=== PATIENT | female | born 1970 | race Caucasian/White ===

== ENCOUNTER 2017-05-11 19:44 | Inpatient (IN) | payer MEDICARE, SELFPAY ==
[2017-05-11 19:45] VITALS: BP 97/55; PULSE 60; RESP 26; TEMP 36.6; O2SAT 94; BMI 41.9
--- NOTE | 2017-05-11 20:11 | PC.NURSE ---
16 [facility] inserted exp. date 02/15/2019 lot #[id number]
--- NOTE | 2017-05-11 20:14 | XR_ITS ---
XR chest AP COMPARISON: None HISTORY: Chest congestion TECHNIQUE: Portable supine chest FINDINGS: This is a poor inspiration. There is there is a questionable opacity in the right suprahilar region most likely due to confluence overlying rib and vascular shadows but a minimal infiltrate in the right upper lobe cannot be entirely excluded. The right lower lung field and left lung field are clear. Cardiac size is likely normal considering the poor inspiration and is no pleural fluid. IMPRESSION: Questionable right suprahilar right upper lobe bronchial pneumonia versus confluence of overlying shadows and suggest clinical correlation and possibly repeat study with better inspiration depending on the patient's symptoms.
--- NOTE | 2017-05-11 20:16 | PC.NURSE ---
poison control contacted prior to arrival, recommendations recieved
[2017-05-11 20:17] LABS: Microscopic,Cath URINE MICROSCOPIC (MICROSCOPIC)
[2017-05-11 20:19] LABS: Eosinophils # 0.1 K/mm3 (0.0-0.4); Eosinophils % 0.5 % (0.1-12.0); Lymphocytes # 2.1 K/mm3 (0.7-4.5); Mean Corpuscular Volume 65.2 fl (81-99); Mean Platelet Volume 7.1 fl (7.4-10.4); Red Cell Distribution Width 17.2 % (11.5-17.5)
--- NOTE | 2017-05-11 20:21 | HMH.EDOD ---
ED Disposition Clinical Impression: Drug overdose Qualifiers: Encounter type: initial encounter Injury intent: intentional self-harm Qualified Code(s): T50.902A - Poisoning by unspecified drugs, medicaments and biological substances, intentional self-harm, initial encounter Leukocytosis Qualifiers: Leukocytosis type: bandemia Qualified Code(s): D72.825 - Bandemia Disposition: Admitted as Observation Condition on Discharge: Good - Critical Care Critical Care Time: Yes Attestation: On 05/11/17, the high probability of a clinically significant, sudden or life threatening deterioration of the following system(s) required my full and direct attention, intervention and personal management. The time I documented below is in addition to time spent performing reported procedures but includes the following listed in this critical care notation. Total Critical Care Time: 90 Vital system(s) involved:: Respiratory Failure My critical care processes included: Assessment & monitoring of V/S, Initial and Re-exams, Data Review/Interpretation, Coordinating Care Medical Decision Making - Medical Records Medical records reviewed: Yes: I reviewed the patient's medical records. Vital Signs: 05/11/17 19:45 Temperature 97.9 F Temperature Source Oral Pulse Rate [Right Radial] 60 Respiratory Rate 26 H Blood Pressure [Right Arm] 97/55 Blood Pressure Mean [Right Arm] 69 Blood Pressure Source [Right Arm] Automatic Cuff Blood Pressure Position [Right Arm] Supine 02 Sat by Pulse Oximetry 94 L Oxygen Delivery Method Room Air - Lab Data Lab results reviewed: Yes: I reviewed the patient's lab results. Lab Results 05/11/17 19:58: WBC 24.2 H*, RBC 5.32, Hgb 10.0 L, Hct 34.7 L, MCV 65.2 L, MCH 18.7 L, MCHC 28.7 L, RDW 17.2, Plt Count 474 H, MPV 7.1 L, Neut % (Auto) 86.8 H, Lymph % (Auto) 8.5 L, [place] % (Auto) 4.1, Eos % (Auto) 0.5, Baso % (Auto) 0.1, Neut # (Auto) 21.0 H, Lymph # (Auto) 2.1, [place] # (Auto) 1.0, Eos # (Auto) 0.1, Baso # (Auto) 0.0, Total Counted 100, Neutrophils % (Manual) 80 H, Band Neutrophils % 11.0 H, Lymphocytes % (Manual) 7 L, Monocytes % (Manual) 2, Platelet Estimate Slight increase, Polychromasia 1+, Hypochromasia 3+, Anisocytosis 1+, Microcytosis 3+ 05/11/17 19:58: Urine Color Yellow, Urine Appearance Sl cloudy, Urine pH 6.0, Ur Specific [place] 1.025, Urine Protein Negative, Urine Glucose (UA) Negative, Urine Ketones Negative, Urine Blood Negative, Urine Nitrate Negative, Urine Bilirubin Negative, Urine Urobilinogen 0.2, Ur Leukocyte Esterase Negative, Urine RBC None, Urine WBC Occasional, Ur Squamous Epith Cells 20-50, Urine Bacteria 1+ 05/11/17 19:58: Sodium 140, Potassium 4.3, Chloride 106, Carbon Dioxide 26, Anion Gap 12.3, BUN 12, Creatinine 0.84, Estimated Creat Clear 78, Estimated GFR 73, Est GFR ( Amer) 88, Glucose 133 H, Calcium 8.7, Total Bilirubin 0.4, AST 19, ALT 24, Alkaline Phosphatase 107, Total Protein 7.6, Albumin 3.2 L, Globulin 4.4 H, Albumin/Globulin Ratio 0.7 L, Salicylates 0.9 L, Acetaminophen 0 L, Plasma/Serum Alcohol 0 05/11/17 19:58: Urine Opiates Screen Negative, Ur Barbituates Screen Negative, Ur Phencyclidine Scrn Negative, Ur Amphetamines Screen Negative, U Methamphetamines Scrn Negative, U Benzodiazepines Scrn Positive H, Urine Cocaine Screen Negative, U Marijuana (THC) Screen Negative 05/11/17 19:58: Total Creatine Kinase 304 H, CK-MB (CK-2) 4.4 H, CK-MB (CK-2) Rel Index 1.4, Troponin I < 0.02 05/11/17 20:15: Specimen Source R. radial, O2 % Room air, ABG pH 7.39, ABG pCO2 35.2, ABG pO2 70.6 L, ABG HCO3 20.8 L, ABG Total CO2 21.9 L, ABG O2 Saturation 93, ABG Base Excess -4.1 L, Alexy Test Acceptable Result diagrams: 05/11/17 19:58 05/11/17 19:58 Orders (Tests/Meds): ED MEDICATIONS Discontinued Medications Generic Name Dose Route Start Last Admin Trade Name Freq PRN Reason Stop Dose Admin Sodium Chloride 1,000 mls @ 999 mls/hr 05/11/17 20:00 05/11/17 20:13 Sod Chlor 0.9% 1000ml
[2017-05-11 20:22] LABS: Appearance,Urine/Cath SL CLOUDY (Clear); Bilirubin,Cath Negative (Negative); Blood, Urine/Cath Negative (Negative); Color,Urine/Cath YELLOW (Yellow); Glucose,Urine/Cath (UA) Negative (Negative); Ketones,Urine/Cath Negative (Negative); Leukocyte Esterase,Cath Negative (Negative); Nitrate,Cath Negative (Negative); Protein,Urine/Cath Negative (Negative); Specific Gravity, Urine/Cath 1.025 (1.005-1.030); Urobilinogen,Cath 0.2 EU/dl (0.2)
[2017-05-11 20:23] LABS: Basophils % 0.1 % (0.1-2.0); Hematocrit 34.7 % (37.0-47.0); Lymphocytes % 8.5 K/mm3 (10-50); Mean Corpuscular HGB Conc 28.7 g/dL (31.8-35.4); Mean Corpuscular Hemoglobin 18.7 pg (27.0-31.2); Monocytes % 4.1 % (1.7-9.3); Neutrophils % 86.8 % (37.0-80.0); Platelet Count 474 K/mm3 (142-424); Red Blood Count 5.32 M/mm3 (4.20-5.40); White Blood Count 24.2 K/mm3 (4.8-10.8)
[2017-05-11 20:24] LABS: ABG Base Excess -4.1 mmol/L (-2.4-2.3); ABG HCO3 20.8 mmhg (22.0-26.0); ABG Oxygen Saturation 93 % (90-100); ABG PCO2 35.2 mmhg (35.0-45.0); ABG PH 7.39 mmol/L (7.35-7.45); ABG PO2 70.6 mmhg (80-100); ABG TCO2 21.9 mmhg (23-27)
[2017-05-11 20:25] LABS: MANUAL DIFFERENTIAL MANUAL DIFFERENTIAL (MANUAL DIFF)
[2017-05-11 20:26] LABS: Allen's Test ACCEPTABLE; Oxygen ROOM AIR %; Source R. RADIAL
[2017-05-11 20:29] LABS: Anisocytosis 1+; Hypochromasia 3+; Lymphocytes % 7 % (10-50); Microcytosis 3+; Monocytes % 2 % (2-9); Neutrophils % 80 % (42-76); Platelet Estimate Slight Increase; Polychromasia 1+; Total Cells Counted 100
[2017-05-11 20:32] LABS: Amphetamine/Metha Screen,Urine Negative ng/mL (<1000); Barbiturates Screen,Urine Negative ng/mL (<200); Benzodiazepines Screen,Urine Positive ng/mL (200); Cannabinoid Screen,Urine Negative ng/mL (<50); Cocaine Screen,Urine Negative ng/g (<300); Methadone Screen,Urine Negative ng/mL (<300); Opiate Screen,Urine Negative ng/mL (<300); Phencyclidine Screen,Urine Negative ng/mL (<25)
[2017-05-11 20:39] LABS: Alanine Aminotransferase 24 U/L (12-78); Albumin Level 3.2 gm/dL (3.4-5.0); Albumin/Globulin Ratio 0.7 (1.1-1.8); Alkaline Phosphatase 107 U/L (46-116); Anion Gap 12.3 mEq/L (5-15); Bilirubin,Total 0.4 mg/dL (0.2-1.0); Blood Urea Nitrogen 12 mg/dL (7-18); Calcium 8.7 mg/dL (8.5-10.1); Carbon Dioxide 26 mmol/L (21.0-32.0); Chloride 106 mmol/L (98-107); Creatinine Clearance Estimated 78 mL/min (0-300); Creatinine,Serum 0.84 mg/dL (0.55-1.02); Estimated Glomerular Filt Rate 73 ml/min (>60); Ethyl Alcohol 0 mg/dL (0-99); GFR (African American) 88 ML/MIN (>60); Globulin 4.4 gm/dl (1.3-3.2); Glucose 133 mg/dL (74-106); Salicylate 0.9 mg/dL (2.8-20.0); Sodium 140 mmol/L (136-145); Total Protein,Serum 7.6 gm/dL (6.4-8.2)
[2017-05-11 20:40] LABS: Acetaminophen 0 ug/mL (10-30); Aspartate Amino Transferase 19 U/L (15-37); Potassium 4.3 mmoL/L (3.5-5.1)
[2017-05-11 20:43] LABS: Bacteria,Urine/Cath 1+ /lpf; Squamous Epithelial Ur./Cath 20-50 #/hpf (0-5); WBC,Urine/Cath Occasional #/hpf (0-3)
[2017-05-11 21:05] LABS: CKMB Relative Index 1.4 U/L (0-4.0); Creatine Kinase 304 U/L (26-192); Creatine Kinase MB 4.4 mg/ml (0.0-3.6); Troponin I < 0.02 ng/ml (0.00-0.06)
--- NOTE | 2017-05-11 22:24 | PC.NURSE ---
Alek Castaneda [phone]
--- NOTE | 2017-05-11 22:25 | PC.NURSE ---
Called report to Michelle
[2017-05-11 22:41] VITALS: BP 99/60; PULSE 57; RESP 12; TEMP 36.6; O2SAT 97
[2017-05-11 23:00] VITALS: PULSE 70
[2017-05-11 23:05] VITALS: O2SAT 96
[2017-05-11 23:06] VITALS: BMI 38.5
[2017-05-11 23:10] VITALS: BP 166/82; PULSE 72; RESP 18; TEMP 36.7; O2SAT 99; BMI 27.7
[2017-05-12] VITALS (16 sets, daily range): BP systolic 134–190; BP diastolic 68–96; PULSE 63–119; RESP 12–22; TEMP 36.4–38.2; O2SAT 94–100
--- NOTE | 2017-05-12 00:04 | PC.NURSE ---
PT SLEEPING AT THIS TIME. WOKE UP BRIEFLY AND ASKED WHERE SHE WAS. PT WAS TOLD THAT SHE WAS AT THE HOSPITAL. PT WAS ASKED IF SHE REMEMBERED ANYTHING? DID SHE REMEMBER TAKING ANY PILLS? PT SAID YES THEN FELL BACK ASLEEP. PUPILS ARE REACTIVE. PT RESPONDS TO PAINFUL STIMULI. UPON ASSESSMENT. LUNGS WERE NOTED TO HAVE RHONCHI T/O. PT REMAINS ON RA @ 97%. OTHER VSS. F/C DRAINING TO BEDSIDE WITH CLOUDY, YELLOW URINE. PT REMAINS ONE ON ONE SUICIDE WATCH AT THIS TIME. STAFF WITHIN HANDS REACH OF PT. SAFETY MEASURES IN PLACE. NO OTHER CONCERNS AT THIS TIME. WILL CONTINUE TO MONITOR.
--- NOTE | 2017-05-12 01:40 | PC.NURSE ---
PT IS AWAKE AT THIS TIME AND COMMUNICATING. SHE STATES THAT SHE WISHES THAT NOONE HAD FOUND HER. SHE ALSO STATED THAT SHE TOOKD 18 XANAX, A BOTTLE OF FLEXERIL AND AMBIEN. SHE ALSO STATED THAT SHE DID IT DELIBERATELY. SHE STATES THAT SHE STILL WISHES THAT SHE HAD . SHE ALSO STATED THAT SHE IS CONCERNED ABOUT HER MENTAL STATUS. SHE STATED THAT SHE SOMETIMES HEARS VOICES AND THAT SHE FEELS LIKE HURTING PEOPLE. SAFETY MEASURES ARE IN PLACE. PT IS CURRENTLY ONE ON ONE SUICIDE WATCH. WILL CONTINUE TO MONITOR.
--- NOTE | 2017-05-12 04:56 | PC.NURSE ---
PT SLEEPING @ THIS TIME. WHEN ASSESSED THIS AM FOR SUICIDE IDEATION. PT STATED AGAIN THAT SHE WISHED THAT HER WOULD HAVE NOT FOUND HER. WHEN ASKED IF SHE HAD THE OPPORTUNITY TO HARM HERSELF WOULD SHE DO IT AGAIN? PT STATED YES. THIS NURSE REPEATED TO HER AND ASKED IF GIVEN THE OPPORTUNITY WOULD SHE TRY TO KILL HERSELF? PT STATED YES. PT SCORED 15 ON [facility] THIS AM. SHE CAN STATE HER NAME, BIRTHDAY, MONTH, OFF BY 2 DAYS OF DATE. STATED THE YEAR WAS 2016 AND COULDN'T REMEMBER THE PRESIDENT. LUNGS HAVE IMPROVED ALTHOUGH CONTINUE TO HAVE SOME SCATTERED RHONCHI. PT HAS BEEN COUGHING SOME SINCE ARRIVING TO FLOOR AND AWAKENING. VSS. F/C DRAINING TO BEDSIDE. TOTAL URINE OUPUT IS 900 AT THIS TIME. SAFETY MEASURES ARE IN PLACE. PT REMAINS ONE ON ONE SUICIDE WATCH. WILL CONTINUE TO MONITOR.
[2017-05-12 06:09] LABS: Basophils % 0.2 % (0.1-2.0); Eosinophils # 0.3 K/mm3 (0.0-0.4); Eosinophils % 1.9 % (0.1-12.0); Hematocrit 34.2 % (37.0-47.0); Lymphocytes # 3.3 K/mm3 (0.7-4.5); Lymphocytes % 19.9 K/mm3 (10-50); Mean Corpuscular HGB Conc 29.1 g/dL (31.8-35.4); Mean Corpuscular Hemoglobin 18.9 pg (27.0-31.2); Mean Platelet Volume 7.1 fl (7.4-10.4); Monocytes # 0.7 K/mm3 (0.1-1.0); Monocytes % 4.5 % (1.7-9.3); Neutrophils # 12.1 K/mm3 (1.8-7.8); Neutrophils % 73.4 % (37.0-80.0); Platelet Count 387 K/mm3 (142-424); Red Blood Count 5.26 M/mm3 (4.20-5.40); Red Cell Distribution Width 17.2 % (11.5-17.5); White Blood Count 16.4 K/mm3 (4.8-10.8)
--- NOTE | 2017-05-12 06:10 | PC.NURSE ---
PT STATED THIS MORNING THAT SHE TOOK 18 XANAX, 2 OR 3 AMBIEN, A BOTTLE OF ZANAFLEX AND A HALF BOTTLE OF FLEXERIL. SHE STATES THAT SHE CURRENTLY IS SEEING A PSYCHIATRIST IN [place] NAMED CHARLIE, BUT DOESN'T KNOW THE LAST NAME.
[2017-05-12 06:12] LABS: MANUAL DIFFERENTIAL MANUAL DIFFERENTIAL (MANUAL DIFF)
[2017-05-12 06:24] LABS: Anion Gap 11.8 mEq/L (5-15); Blood Urea Nitrogen 12 mg/dL (7-18); Carbon Dioxide 25 mmol/L (21.0-32.0); Chloride 109 mmol/L (98-107); Creatinine Clearance Estimated 139 mL/min (0-300); Creatinine,Serum 0.87 mg/dL (0.55-1.02); Potassium 3.8 mmoL/L (3.5-5.1); Sodium 142 mmol/L (136-145)
[2017-05-12 06:25] LABS: Estimated Glomerular Filt Rate 70 ml/min (>60); GFR (African American) 85 ML/MIN (>60); Glucose 98 mg/dL (74-106)
[2017-05-12 07:12] LABS: Lymphocytes % 18 % (10-50); Monocytes % 6 % (2-9); Neutrophils % 76 % (42-76); Platelet Estimate Normal; RBC Morphology Normal; Total Cells Counted 100
--- NOTE | 2017-05-12 08:35 | XR_ITS ---
XR chest 2V COMPARISON: Portable supine chest 05/11/2017 HISTORY: Evaluation of possible right upper lobe pneumonia versus overlying shadows TECHNIQUE: PA and lateral chest FINDINGS: The lung marin are well expanded and appear clear of infiltrate. In particular the questionable opacity right upper lobe is not seen and likely was a confluence of overlying rib and vascular shadows on the supine film yesterday. Cardiac size is normal and is no pleural fluid. IMPRESSION: Negative chest
--- NOTE | 2017-05-12 08:43 | HMH.HP ---
*Admission Date: 05/11/17 *Chief complaint: Intentional overdose of multiple substances *History of present illness: 47-year-old white female with long history of psychiatric disease, follows with [facility] in [place], not had a primary care medical provider for a couple of years who presented to the emergency department with family after she intentionally ingested at least 18 1 mg Xanax tablets, a full bottle of Zanaflex muscle relaxer and several Ambien tablets. She tells me this morning the impetus for this was a fight with my . She acknowledged that this ingestion was intentional. In the emergency department respiratory status is stable. She was noted to have a leukocytosis otherwise labs were normal. Questionable infiltrate on chest x-ray was also noted. She was admitted overnight for observation, medical clearance and disposition based on this intentional drug overdose. 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 Status: unemployed Household Members: spouse - Psychiatric History Expresses thoughts of harming self/others: Frequent, Harm to Others Suicide Plan Description: Clear Pschychiatric History:: Reports:: Suicide Attempt Review of Systems - Review of Systems Review of systems:: unable to obtain, other, pertinent systems reviewed and negative unless documented below - *Genitourinary Reports painful urination (Complains of pain with catheter) - Allergic/Immunologic Reports GI upset with certain foods Meds Home Medications Medication Instructions Recorded Confirmed Type Buspirone HCl [Buspar 10mg tablet] 10 mg PO DAILY 05/11/17 05/11/17 History Cyclobenzaprine HCl 10 mg PO Q8HP PRN 05/11/17 05/11/17 History [Cyclobenzaprine 10mg Tab] Doxepin HCl [Silenor] 3 mg PO DAILY 05/11/17 05/11/17 History Duloxetine HCl [Cymbalta] 30 mg PO DAILY 05/11/17 05/11/17 History Metformin HCl [Metformin 500mg 500 mg PO BID 05/11/17 05/12/17 History Tablet] Omeprazole [Omeprazole 20mg 20 mg PO BID 05/11/17 05/12/17 History Capsule] Zolpidem Tartrate [Ambien 10mg 10 mg PO HS 05/11/17 05/11/17 History tablet] Furosemide [Lasix 40mg tab] 40 mg PO BID 05/12/17 05/12/17 History Promethazine HCl [Phenergan 25mg 25 mg PO Q4HP PRN 05/12/17 05/12/17 History tab] Tizanidine HCl 4 mg PO DIRECTED PRN 05/12/17 05/12/17 History Allergies Allergy/AdvReac Type Severity Reaction Status Date / Time From Penicillin G Sodium Allergy Unknown Uncoded 03/06/17 15:07 Penicillin Allergy Unknown Uncoded 03/06/17 15:07 Exam Vital signs and Labs for Last 24 Hours: Temp Pulse Resp BP Pulse Ox 97.6 F 104 H 16 160/87 99 05/12/17 06:00 05/12/17 07:56 05/12/17 07:56 05/12/17 07:56 05/12/17 07:56 Laboratory Results - last 24 hr 05/12/17 05:50: WBC 16.4 H D, RBC 5.26, Hgb 10.0 L, Hct 34.2 L, MCV 65.0 L, MCH 18.9 L, MCHC 29.1 L, RDW 17.2, Plt Count 387, MPV 7.1 L, Neut % (Auto) 73.4, Lymph % (Auto) 19.9, [place] % (Auto) 4.5, Eos % (Auto) 1.9, Baso % (Auto) 0.2, Neut # (Auto) 12.1 H, Lymph # (Auto) 3.3, [place] # (Auto) 0.7, Eos # (Auto) 0.3, Baso # (Auto) 0.0, Total Counted 100, Neutrophils % (Manual) 76, Lymphocytes % (Manual) 18, Monocytes % (Manual) 6, Platelet Estimate Normal, RBC Morphology Normal 05/12/17 05:50: Sodium 142, Potassium 3.8, Chloride 109 H, Carbon Dioxide 25, Anion Gap 11.8, BUN 12, Creatinine 0.87, Estimated Creat Clear 139, Estimated GFR 70, Est GFR ( Amer) 85, Glucose 98 D I & O for Last 24 hours: Intake & Output 05/09/17 05/10/17 05/11/17 05/12/17 11:59 11:59 11:59 11:59 Intake Total 289 / 289 Output Total 900 / 900 Balance -611 / -611 Weight 240 lb Narrative: Examined this morning on second floor. Corrigan catheter was
--- NOTE | 2017-05-12 08:48 | P.HP_ITS ---
*Admission Date: 05/11/17 *Chief complaint: Intentional overdose of multiple substances *History of present illness: 47-year-old white female with long history of psychiatric disease, follows with [facility] in [place], not had a primary care medical provider for a couple of years who presented to the emergency department with family after she intentionally ingested at least 18 1 mg Xanax tablets, a full bottle of Zanaflex muscle relaxer and several Ambien tablets. She tells me this morning the impetus for this was a fight with my . She acknowledged that this ingestion was intentional. In the emergency department respiratory status is stable. She was noted to have a leukocytosis otherwise labs were normal. Questionable infiltrate on chest x-ray was also noted. She was admitted overnight for observation, medical clearance and disposition based on this intentional drug overdose. 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 Status: unemployed Household Members: spouse - Psychiatric History Expresses thoughts of harming self/others: Frequent, Harm to Others Suicide Plan Description: Clear Pschychiatric History:: Reports:: Suicide Attempt Review of Systems - Review of Systems Review of systems:: unable to obtain, other, pertinent systems reviewed and negative unless documented below - *Genitourinary Reports painful urination (Complains of pain with catheter) - Allergic/Immunologic Reports GI upset with certain foods Meds Home Medications Medication Instructions Recorded Confirmed Type Buspirone HCl [Buspar 10mg tablet] 10 mg PO DAILY 05/11/17 05/11/17 History Cyclobenzaprine HCl 10 mg PO Q8HP PRN 05/11/17 05/11/17 History [Cyclobenzaprine 10mg Tab] Doxepin HCl [Silenor] 3 mg PO DAILY 05/11/17 05/11/17 History Duloxetine HCl [Cymbalta] 30 mg PO DAILY 05/11/17 05/11/17 History Metformin HCl [Metformin 500mg 500 mg PO BID 05/11/17 05/12/17 History Tablet] Omeprazole [Omeprazole 20mg 20 mg PO BID 05/11/17 05/12/17 History Capsule] Zolpidem Tartrate [Ambien 10mg 10 mg PO HS 05/11/17 05/11/17 History tablet] Furosemide [Lasix 40mg tab] 40 mg PO BID 05/12/17 05/12/17 History Promethazine HCl [Phenergan 25mg 25 mg PO Q4HP PRN 05/12/17 05/12/17 History tab] Tizanidine HCl 4 mg PO DIRECTED PRN 05/12/17 05/12/17 History Allergies Allergy/AdvReac Type Severity Reaction Status Date / Time From Penicillin G Sodium Allergy Unknown Uncoded 03/06/17 15:07 Penicillin Allergy Unknown Uncoded 03/06/17 15:07 Exam Vital signs and Labs for Last 24 Hours: Temp Pulse Resp BP Pulse Ox 97.6 F 104 H 16 160/87 99 05/12/17 06:00 05/12/17 07:56 05/12/17 07:56 05/12/17 07:56 05/12/17 07:56 Laboratory Results - last 24 hr 05/12/17 05:50: WBC 16.4 H D, RBC 5.26, Hgb 10.0 L, Hct 34.2 L, MCV 65.0 L, MCH 18.9 L, MCHC 29.1 L, RDW 17.2, Plt Count 387, MPV 7.1 L, Neut % (Auto) 73.4, Lymph % (Auto) 19.9, [place] % (Auto) 4.5, Eos % (Auto) 1.9, Baso % (Auto) 0.2, Neut # (Auto) 12.1 H, Lymph # (Auto) 3.3, [place] # (Auto) 0.7, Eos # (Auto) 0.3, Baso # (Auto) 0.0, Total Counted 100, Neutrophils % (Manual) 76, Lymphocytes % ( Manual) 18, Monocytes % (Manual) 6, P
--- NOTE | 2017-05-12 09:37 | CARE MANAGER ---
Received phone call this AM from Dr. Hayes regarding this patient, patient presented to the ER after a mulit-drug intentional overdose. I spoke with patient and daughter who agrees to go willingly for assessment and treatment. Daughter requests that we do not attempt [facility] in [place] but did agree to [facility] in [place]. Information was faxed to Chika at [facility] and she will follow-up with Stacy (primary nurse) about accepting the patient.
--- NOTE | 2017-05-12 10:54 | P.CONPHA_ITS ---
[facility] Pharmacy VTE Monitoring - Patient Demographics Admission date: 05/11/17 Report Date: 05/12/17 Time: 10:54 Allergies/Adverse Reactions: Patient Allergies From Penicillin G Sodium Allergy (Unknown, Uncoded 03/06/17 15:07) Penicillin Allergy (Unknown, Uncoded 03/06/17 15:07) Height: 1.98 m Weight: 108.862 kg Patient Problems: Current Active Problems Drug overdose (Acute) Leukocytosis (Acute) Abnormal chest x-ray (Acute) - VTE Risk Labs: VTE Related Lab Results Hgb 10.0 g/dL (12.2-16.2) L 05/12/17 05:50 Hct 34.2 % (37.0-47.0) L 05/12/17 05:50 Plt Count 387 K/mm3 (142-424) 05/12/17 05:50 BUN 12 mg/dL (7-18) 05/12/17 05:50 Creatinine 0.87 mg/dL (0.55-1.02) 05/12/17 05:50 Estimated Creat Clear 139 mL/min (0-300) 05/12/17 05:50 Was VTE Risk Assessment Performed: Yes VTE Risk Level: Low Risk - Prophylaxis VTE Prophylaxis Ordered?: Yes Types of VTE Prophylaxis: TEDS Knee High Location of Applied Device: Bilateral Lower Extremeties
--- NOTE | 2017-05-12 17:14 | PC.NURSE ---
PT IS ALERT AND ORIENTED X4. PT HAS EXPERIENCED TWO EPISODES OF SEVERE CRYING THAT RESULTED IN RAPID BREATHING/RESPIRATIONS, VSS. RELAXATION BREATHING TECHNIQUES, GUIDED IMAGERY AND DISTRACTION HAVE BEEN EFFECTIVE TO TREAT EPISODES. ONCE PATIENT IS CALM AND ABLE TO COMMUNICATE WITH STAFF, PT STATES SHE DOES NOT KNOW WHY SHE HAS SPORADIC SPELLS OF ANXIETY AND PANIC ATTACKS. FIRST CRYING EPISODE STARTED WHILE PATIENT WAS USING THE RESTROOM AND PATIENT WAS UNABLE TO DE- ESCALATE AND STAFF HAD TO PHYSICALLY TRANSFER PT FROM TOILET TO HER BED. IN BETWEEN CRYING EPISODES, PT'S MOOD IS OBSERVED TO BE EUTHYMIC, APPROPRIATE AFFECT, CLEAR SPEECH. PT INTERACTS CHEERFULLY WITH FAMILY AND FRIENDS AT BEDSIDE. STAFF ASKED PATIENT IF SHE CRIES AT TIMES TO GET 'S ATTENTION, PT REPLIED, THAT'S EXACTLY WHAT I DO. PT DENIES SI/HI, AVH WHEN DIRECTLY ASKED BUT DURING CONVERSATION, SHE STATES THAT SHE WILL WANT TO HARM HERSELF AGAIN. PT HAS NOT ATTEMPTED TO HARM SELF BUT WILL NOT CONTRACT FOR SAFETY. PT REMAINS ON 1:1 WITH STAFF UNTIL FURTHER INSTRUCTIONS/ORDERS FROM PHYSICIAN. VSS. NO COMPLAINTS VOICED. PT HAS URINATED WITHOUT PROBLEM SINCE REMOVAL OF BRISENO CATHETER. PT HAS CONSUMED ADEQUATE AMOUNT EACH MEAL. FALL PREVENTION EDUCATION COMPLETED. IV IS PATENT, SECURE AND INFUSING IVF. WILL CONTINUED TO MONITOR.
[2017-05-13 00:41] VITALS: BP 129/58; PULSE 99; RESP 16; TEMP 36.8; O2SAT 95
[2017-05-13 04:15] VITALS: BP 145/74; PULSE 94; RESP 18; TEMP 36.9; O2SAT 96
--- NOTE | 2017-05-13 04:26 | PC.NURSE ---
AT CHANGE OF SHIFT PT WITH PANIC ATTACK . RAPID BREATHNG, HR ELEVATED. PT HAD FAMILY MEMBER IN ROOM. PT A 1:1 DUE TO OVERDOSING. PT EVENTUALLY CALMED WITHOUT INTERVENTION. PT HAD MULTIPLE PEOPLE IN ROOM AT ONE POINT. 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 ONE VISITOR STAYED WITH PATIENT THROUGHOUT NIGHT. SINCE EARLY IN SHIFT PT HAS BEEN TALKATIVE AND PLEASANT WITH NO FURTHER PANIC ATTACKS . PT DID REQUEST SLEEP AID WHICH THERE WAS NO ORDER FOR. PT REMAINS A 1:1. PT HAS NOT SLEPT.
[2017-05-13 08:22] VITALS: BP 132/85; PULSE 107; RESP 20; TEMP 36.6; O2SAT 100
--- NOTE | 2017-05-13 08:39 | PC.NURSE ---
I SPOKE WITH [facility] CLAROS THIS AM AND THEY REQUESTED SOME ADDITIONAL TESTING. PER DR COOLEY ORDERED A CBC, CMP, AND EKG
[2017-05-13 08:59] LABS: Basophils % 0.3 % (0.1-2.0); Eosinophils # 0.4 K/mm3 (0.0-0.4); Eosinophils % 2.8 % (0.1-12.0); Hematocrit 30.3 % (37.0-47.0); Hemoglobin 8.8 g/dL (12.2-16.2); Lymphocytes # 4.2 K/mm3 (0.7-4.5); Lymphocytes % 32.4 K/mm3 (10-50); Mean Corpuscular HGB Conc 28.9 g/dL (31.8-35.4); Mean Corpuscular Hemoglobin 18.7 pg (27.0-31.2); Mean Corpuscular Volume 64.6 fl (81-99); Mean Platelet Volume 7.6 fl (7.4-10.4); Monocytes # 0.7 K/mm3 (0.1-1.0); Monocytes % 5.7 % (1.7-9.3); Neutrophils # 7.6 K/mm3 (1.8-7.8); Neutrophils % 58.8 % (37.0-80.0); Platelet Count 399 K/mm3 (142-424); Red Blood Count 4.69 M/mm3 (4.20-5.40); Red Cell Distribution Width 17.2 % (11.5-17.5); White Blood Count 12.9 K/mm3 (4.8-10.8)
--- NOTE | 2017-05-13 09:05 | HMH.DCSUM ---
General - General Admission date: 05/11/17 Discharge date: 05/13/17 HPI HPI: 47-year-old white female with long history of psychiatric disease, follows with [facility] in [place], not had a primary care medical provider for a couple of years who presented to the emergency department with family after she intentionally ingested at least 18 1 mg Xanax tablets, a full bottle of Zanaflex muscle relaxer and several Ambien tablets. She tells me this morning the impetus for this was a fight with my . She acknowledged that this ingestion was intentional. In the emergency department respiratory status is stable. She was noted to have a leukocytosis otherwise labs were normal. Questionable infiltrate on chest x-ray was also noted. She was admitted overnight for observation, medical clearance and disposition based on this intentional drug overdose. Objective Vital signs: Temp Pulse Resp BP Pulse Ox 97.9 F 107 H 20 132/85 100 05/13/17 08:22 05/13/17 08:22 05/13/17 08:22 05/13/17 08:22 05/13/17 08:22 Narrative: This morning on day of discharge patient is awake, dressed in appropriate clothing. Alert, oriented ?3. Has questions about transportation to inpatient psychiatric facility which are very appropriate. Good eye contact. No complaints. Lungs are clear, heart rate regular. Rate low 90s, regular. Abdomen soft, obesity noted. Wearing compression stockings. No edema. Cranial nerves are symmetric. No deficits of peripheral nerves. No rash. Hospital Course Hospital Course: Patient was admitted. She was monitored in our stepdown unit for her benzodiazepine overdose. Her consciousness cleared over the next 24 hours. She had a mild leukocytosis on presentation which resolved down to normal white count of 12 today. Initial x-ray with Javier infiltrate but portable exam and repeat AP and lateral revealed a clear chest x-ray, and her labs normalized as noted. Kidney function, liver function except are unremarkable. EKG this morning unremarkable. Patient's exam cleared. She will be transferred to psychiatric facility for ongoing evaluation given her intentional drug overdose. Results Labs on day of discharge: Labs from last 24 hours 05/13/17 08:50 WBC 12.9 H RBC 4.69 Hgb 8.8 L Hct 30.3 L MCV 64.6 L MCH 18.7 L MCHC 28.9 L RDW 17.2 Plt Count 399 MPV 7.6 Neut % (Auto) 58.8 Lymph % (Auto) 32.4 [place] % (Auto) 5.7 Eos % (Auto) 2.8 Baso % (Auto) 0.3 Neut # (Auto) 7.6 Lymph # (Auto) 4.2 [place] # (Auto) 0.7 Eos # (Auto) 0.4 Baso # (Auto) 0.0 DS: Diagnosis - Discharge Diagnosis (1) Abnormal chest x-ray Status: Resolved (2) Drug overdose Status: Acute (3) Leukocytosis Status: Resolved Discharge Plan - Patient Discharge Instructions ACTIVITY: Continue current activity - Follow up Plan Disposition: Xfer Psychiatric Hosp Home Medications: Home Medications Medication Instructions Recorded Confirmed Type Buspirone HCl [Buspar 10mg tablet] 10 mg PO DAILY 05/11/17 05/11/17 History Cyclobenzaprine HCl 10 mg PO Q8HP PRN 05/11/17 05/11/17 History [Cyclobenzaprine 10mg Tab] Doxepin HCl [Silenor] 3 mg PO DAILY 05/11/17 05/11/17 History Duloxetine HCl [Cymbalta] 30 mg PO TID 05/11/17 05/12/17 History Metformin HCl [Metformin 500mg 500 mg PO BID 05/11/17 05/12/17 History Tablet] Omeprazole [Omeprazole 20mg 20 mg PO BID 05/11/17 05/12/17 History Capsule] Zolpidem Tartrate [Ambien 10mg 10 mg PO HS 05/11/17 05/11/17 History tablet] Furosemide [Lasix 40mg tab] 40 mg PO BID 05/12/17 05/12/17 History Lisinopril [Lisinopril 5mg Tablet] 5 mg PO DAILY 05/12/17 05/12/17 History Promethazine HCl [Phenergan 25mg 25 mg PO Q4HP PRN 05/12/17 05/12/17 History tab] Tizanidine HCl 4 mg PO DIRECTED PRN 05/12/17 05/12/17 History Prescriptions/Medication Reconciliation: Continue Omeprazole [O
[2017-05-13 09:08] LABS: Alanine Aminotransferase 21 U/L (12-78); Albumin Level 3.1 gm/dL (3.4-5.0); Albumin/Globulin Ratio 0.7 (1.1-1.8); Alkaline Phosphatase 105 U/L (46-116); Anion Gap 16.2 mEq/L (5-15); Aspartate Amino Transferase 11 U/L (15-37); Bilirubin,Total 0.2 mg/dL (0.2-1.0); Blood Urea Nitrogen 8 mg/dL (7-18); Calcium 8.5 mg/dL (8.5-10.1); Carbon Dioxide 24 mmol/L (21.0-32.0); Chloride 106 mmol/L (98-107); Creatinine Clearance Estimated 120 mL/min (0-300); Creatinine,Serum 1.01 mg/dL (0.55-1.02); Estimated Glomerular Filt Rate 59 ml/min (>60); GFR (African American) 71 ML/MIN (>60); Globulin 4.5 gm/dl (1.3-3.2); Glucose 126 mg/dL (74-106); Potassium 3.2 mmoL/L (3.5-5.1); Sodium 143 mmol/L (136-145); Total Protein,Serum 7.6 gm/dL (6.4-8.2)
--- NOTE | 2017-05-13 09:08 | P.DS_ITS ---
General - General Admission date: 05/11/17 Discharge date: 05/13/17 HPI HPI: 47-year-old white female with long history of psychiatric disease, follows with [facility] in [place], not had a primary care medical provider for a couple of years who presented to the emergency department with family after she intentionally ingested at least 18 1 mg Xanax tablets, a full bottle of Zanaflex muscle relaxer and several Ambien tablets. She tells me this morning the impetus for this was a fight with my . She acknowledged that this ingestion was intentional. In the emergency department respiratory status is stable. She was noted to have a leukocytosis otherwise labs were normal. Questionable infiltrate on chest x-ray was also noted. She was admitted overnight for observation, medical clearance and disposition based on this intentional drug overdose. Objective Vital signs: Temp Pulse Resp BP Pulse Ox 97.9 F 107 H 20 132/85 100 05/13/17 08:22 05/13/17 08:22 05/13/17 08:22 05/13/17 08:22 05/13/17 08:22 Narrative: This morning on day of discharge patient is awake, dressed in appropriate clothing. Alert, oriented ?3. Has questions about transportation to inpatient psychiatric facility which are very appropriate. Good eye contact. No complaints. Lungs are clear, heart rate regular. Rate low 90s, regular. Abdomen soft, obesity noted. Wearing compression stockings. No edema. Cranial nerves are symmetric. No deficits of peripheral nerves. No rash. Hospital Course Hospital Course: Patient was admitted. She was monitored in our stepdown unit for her benzodiazepine overdose. Her consciousness cleared over the next 24 hours. She had a mild leukocytosis on presentation which resolved down to normal white count of 12 today. Initial x-ray with Javier infiltrate but portable exam and repeat AP and lateral revealed a clear chest x-ray, and her labs normalized as noted. Kidney function, liver function except are unremarkable. EKG this morning unremarkable. Patient's exam cleared. She will be transferred to psychiatric facility for ongoing evaluation given her intentional drug overdose. Results Labs on day of discharge: Labs from last 24 hours 05/13/17 08:50 WBC 12.9 H RBC 4.69 Hgb 8.8 L Hct 30.3 L MCV 64.6 L MCH 18.7 L MCHC 28.9 L RDW 17.2 Plt Count 399 MPV 7.6 Neut % (Auto) 58.8 Lymph % (Auto) 32.4 Bollinger % (Auto) 5.7 Eos % (Auto) 2.8 Baso % (Auto) 0.3 Neut # (Auto) 7.6 Lymph # (Auto) 4.2 Bollinger # (Auto) 0.7 Eos # (Auto) 0.4 Baso # (Auto) 0.0 DS: Diagnosis - Discharge Diagnosis (1) Abnormal chest x-ray Status: Resolved (2) Drug overdose Status: Acute (3) Leukocytosis Status: Resolved Discharge Plan - Patient Discharge Instructions ACTIVITY: Continue current activity - Follow up Plan Disposition: Xfer Psychiatric Hosp Home Medications: Home Medications Medication Instructions Recorded Confirmed Type Buspirone HCl [Buspar 10mg tablet] 10 mg PO DAILY 05/11/17 05/11/17 History Cyclobenzaprine HCl 10 mg PO Q8HP PRN 05/11/17 05/11/17 History [Cyclobenzaprine 10mg Tab] Doxepin HCl [Silenor] 3 mg PO DAILY 05/11/17 05/11/17 History
[2017-05-13 11:04] VITALS: BP 133/95; PULSE 98; RESP 22; TEMP 36.7; O2SAT 99
== END 2017-05-13 12:10 | disposition other institution (70) | DRG 918 ==
LOC: ER 21:42 → 2ND 22:46
PROVIDERS: Admitting Provider Internal Medicine Adolescent Medicine; Emergency Provider Emergency Medicine; Visit Provider Internal Medicine Adolescent Medicine
DX: T42.4X2A Poisoning by benzodiazepines, intentional self-harm, initial encounter (principal); T42.6X2A Poisoning by other antiepileptic and sedative-hypnotic drugs, intentional self-harm, initial encounter; T42.8X2A Poisoning by antiparkinsonism drugs and other central muscle-tone depressants, intentional self-harm, initial encounter; Y92.019 Unspecified place in single-family (private) house as the place of occurrence of the external cause
CPT/HCPCS: 36415; 71045; 71046; 80048; 80053; 80305; 80329; 81001; 82550; 82553; 82803; 84484; 85007; 85025; 93005; 96365; 96375; 99284